=== PATIENT | female | born 1985 | race Caucasian/White ===

== ENCOUNTER 2016-11-19 18:04 | Emergency (ER) | payer OTHER ==
[~2016-11-19] VITALS: Ht 162.6 cm; Wt 104.8 kg
[2016-11-19 18:10] VITALS: BP 121/71
[2016-11-19 18:26] LABS: ADD MIUA? NO; BILIRUBIN NEGATIVE; BLOOD NEGATIVE; COLOR YELLOW ((YELLOW)); GLUCOSE (STRIP) NEGATIVE; KETONES NEGATIVE; LEUKOCYTES NEGATIVE; NITRITE NEGATIVE; PROTEIN (STRIP) NEGATIVE; UCUL ADDED? NO; UROBILINOGEN 0.2 MG/DL (0.2-1.0)
[2016-11-19 18:57] LABS: HEMATOCRIT 34.9 % (36.0-46.0); MCHC 30.4 G/DL (30.0-36.0); MCV 79.1 FL (83-99); MEAN PLAT.VOLUME 11.7 uM^3 (9.5-12.4); PLATELET COUNT 280 K/uL (156-360); RBC DIS.WIDTH-SD 42.8 % (39-53); RED BLOOD COUNT 4.41 M/uL (3.80-5.20); WHITE BLOOD COUNT 10.3 K/uL (4.1-10.2)
[2016-11-19 19:08] LABS: CHLORIDE 108 mEq/L (99-109); POTASSIUM 4.3 mEq/L (3.7-5.4); SODIUM 140 mEq/L (136-147)
[2016-11-19 19:10] LABS: GLUCOSE 88 mg/dL (70-99)
[2016-11-19 19:11] LABS: ANION GAP 13 MEQ/L (2-14)
[2016-11-19 19:12] LABS: TOTAL BILIRUBIN 0.2 mg/dL (0.0-1.0)
[2016-11-19 19:13] LABS: ALKALINE PHOSPHATASE 103 IU/L (3-129)
[2016-11-19 19:14] LABS: GFR ESTIMATE (CALCULATED) > 59 mL/min/
[2016-11-19 19:15] LABS: UREA NITROGEN (BUN) 16 mg/dL (9-23)
[2016-11-19 19:17] LABS: LIPASE 27 U/L (1.0-51.0)
[2016-11-19 19:23] LABS: QUANTITATIVE HCG < 4.0 MIU/ML
== END 2016-11-19 20:06 | disposition home or self-care (01) ==
LOC: EME 18:04
DX: R10.13 Epigastric pain (principal); D64.9 Anemia, unspecified
CPT/HCPCS: 80053; 81003; 83690; 84702; 85027; 99281; 99284

== ENCOUNTER 2017-02-23 21:50 | Emergency (ER) | payer OTHER ==
[~2017-02-23] VITALS: Ht 162.6 cm; Wt 105.4 kg
[2017-02-23 22:22] LABS: APPEARANCE SL.HAZY ((CLEAR)); BILIRUBIN NEGATIVE; BLOOD SMALL; COLOR YELLOW ((YELLOW)); GLUCOSE (STRIP) NEGATIVE; KETONES NEGATIVE; LEUKOCYTES NEGATIVE; NITRITE NEGATIVE; PROTEIN (STRIP) NEGATIVE; SPECIFIC GRAVITY 1.024 (1.000-1.030)
[2017-02-23 22:32] LABS: MCH 24.4 PG (29.0-34.0); MCHC 30.3 G/DL (30.0-36.0); MCV 80.5 FL (83-99); PLATELET COUNT 361 K/uL (156-360); RBC DIS.WIDTH-CV 14.7 % (11.8-14.6); RBC DIS.WIDTH-SD 43.3 % (39-53); WHITE BLOOD COUNT 10.6 K/uL (4.1-10.2)
[2017-02-23 22:37] LABS: BACTERIA RARE /HPF; EPITHELIAL CELLS 1+ /HPF; MUCUS TRACE /LPF; RED BLOOD CELLS 0-5 /HPF (0-5); UCUL ADDED? NO; WHITE BLOOD CELLS 0-5 /HPF (0-5)
[2017-02-23 22:39] LABS: ALBUMIN 4.2 g/dL (3.2-4.8); CHLORIDE 108 mEq/L (99-109); POTASSIUM 4.3 mEq/L (3.7-5.4); SODIUM 141 mEq/L (136-147)
[2017-02-23 22:42] LABS: GLUCOSE 100 mg/dL (70-99)
[2017-02-23 22:44] LABS: TOTAL BILIRUBIN 0.1 mg/dL (0.0-1.0)
[2017-02-23 22:45] LABS: ALKALINE PHOSPHATASE 108 IU/L (3-129); CREATININE 0.8 mg/dL (0.6-1.3); GFR ESTIMATE (CALCULATED) > 59 mL/min/
[2017-02-23 22:46] LABS: UREA NITROGEN (BUN) 14 mg/dL (9-23)
[2017-02-23 22:47] LABS: AST (GOT) 13 IU/L (2-34)
[2017-02-23 22:48] LABS: ALT (GPT) 12 IU/L (3-49)
[2017-02-23 22:55] LABS: QUANTITATIVE HCG 26.2 MIU/ML
[2017-02-24 00:24] VITALS: BP 139/78
== END 2017-02-24 00:25 | disposition home or self-care (01) ==
LOC: RME 21:50 → EME 21:50 → RME 02-24 00:25
DX: O20.9 Hemorrhage in early pregnancy, unspecified (principal); O99.011 Anemia complicating pregnancy, first trimester; Z3A.00 Weeks of gestation of pregnancy not specified
CPT/HCPCS: 80053; 81003; 84702; 85027; 99281; 99284

== ENCOUNTER 2017-02-25 19:49 | Emergency (ER) | payer OTHER ==
[~2017-02-25] VITALS: Ht 162.6 cm; Wt 105.1 kg
[2017-02-25 23:41] VITALS: BP 95/59
== END 2017-02-25 23:45 | disposition home or self-care (01) ==
LOC: EME 19:49
DX: O03.9 Complete or unspecified spontaneous abortion without complication (principal); N83.11 Corpus luteum cyst of right ovary; M54.5 Low back pain
CPT/HCPCS: 76817; 84702; 99281; 99284

== ENCOUNTER 2017-06-11 19:02 | Emergency (ER) | payer OTHER ==
[~2017-06-11] VITALS: Ht 162.6 cm; Wt 108.0 kg
[2017-06-11 19:38] LABS: HEMATOCRIT 31.9 % (36.0-46.0); HEMOGLOBIN 9.9 G/DL (11.9-15.5); MCH 24.8 PG (29.0-34.0); MCV 79.8 FL (83-99); PLATELET COUNT 344 K/uL (156-360); RBC DIS.WIDTH-CV 15.4 % (11.8-14.6); RBC DIS.WIDTH-SD 44.2 % (39-53); WHITE BLOOD COUNT 9.6 K/uL (4.1-10.2)
[2017-06-11 19:47] LABS: ALBUMIN 4.2 g/dL (3.2-4.8); CHLORIDE 110 mEq/L (99-109); POTASSIUM 3.6 mEq/L (3.7-5.4); SODIUM 139 mEq/L (136-147)
[2017-06-11 19:48] LABS: APPEARANCE CLEAR ((CLEAR)); BILIRUBIN NEGATIVE; BLOOD NEGATIVE; COLOR YELLOW ((YELLOW)); GLUCOSE (STRIP) NEGATIVE; KETONES 5; LEUKOCYTES NEGATIVE; NITRITE NEGATIVE; PROTEIN (STRIP) NEGATIVE; SPECIFIC GRAVITY 1.034 (1.000-1.030)
[2017-06-11 19:50] LABS: GLUCOSE 100 mg/dL (70-99)
[2017-06-11 19:52] LABS: TOTAL BILIRUBIN 0.2 mg/dL (0.0-1.0)
[2017-06-11 19:53] LABS: ALKALINE PHOSPHATASE 84 IU/L (3-129)
[2017-06-11 19:54] LABS: CREATININE 0.8 mg/dL (0.6-1.3); GFR ESTIMATE (CALCULATED) > 59 mL/min/
[2017-06-11 19:55] LABS: AST (GOT) 11 IU/L (2-34); DIRECT BILIRUBIN 0.1 mg/dL (0.0-0.3); UREA NITROGEN (BUN) 11 mg/dL (9-23)
[2017-06-11 19:56] LABS: ALT (GPT) 10 IU/L (3-49)
[2017-06-11 19:57] LABS: LIPASE 28 U/L (1.0-51.0)
[2017-06-11 20:05] LABS: QUANTITATIVE HCG 1751.8 MIU/ML
[2017-06-11 22:55] VITALS: BP 125/73
== END 2017-06-11 22:55 | disposition home or self-care (01) ==
LOC: EME 19:02
PROVIDERS: Physician Assistant
DX: O99.89 Other specified diseases and conditions complicating pregnancy, childbirth and the puerperium (principal); M54.5 Low back pain; O99.281 Endocrine, nutritional and metabolic diseases complicating pregnancy, first trimester; E86.0 Dehydration; O20.0 Threatened abortion; Z3A.01 Less than 8 weeks gestation of pregnancy; R30.0 Dysuria
CPT/HCPCS: 76801; 80048; 80076; 81003; 83690; 84702; 85027; 86900; 86901; 99281; 99284

== ENCOUNTER 2017-06-20 21:28 | Emergency (ER) | payer OTHER ==
[~2017-06-20] VITALS: Ht 162.6 cm; Wt 108.7 kg
[2017-06-20 22:39] LABS: APPEARANCE CLEAR ((CLEAR)); BILIRUBIN NEGATIVE; BLOOD NEGATIVE; COLOR YELLOW ((YELLOW)); GLUCOSE (STRIP) NEGATIVE; KETONES NEGATIVE; LEUKOCYTES NEGATIVE; NITRITE NEGATIVE; PROTEIN (STRIP) NEGATIVE; SPECIFIC GRAVITY 1.023 (1.000-1.030); UCUL ADDED? NO; UROBILINOGEN 0.2 MG/DL (0.2-1.0)
[2017-06-21 00:05] VITALS: BP 126/64
== END 2017-06-21 00:06 | disposition home or self-care (01) ==
LOC: EME 21:28
PROVIDERS: Physician Assistant
DX: O9A.211 Injury, poisoning and certain other consequences of external causes complicating pregnancy, first trimester (principal); S30.0XXA Contusion of lower back and pelvis, initial encounter; R10.2 Pelvic and perineal pain; Z3A.01 Less than 8 weeks gestation of pregnancy; W10.9XXA Fall (on) (from) unspecified stairs and steps, initial encounter
CPT/HCPCS: 76801; 81003; 99281; 99284

== ENCOUNTER 2017-08-31 14:10 | Emergency (ER) | payer OTHER ==
[~2017-08-31] VITALS: Ht 162.6 cm; Wt 112.7 kg
[2017-08-31 15:06] LABS: APPEARANCE CLEAR ((CLEAR)); BILIRUBIN NEGATIVE; BLOOD NEGATIVE; COLOR STRAW ((YELLOW)); GLUCOSE (STRIP) NEGATIVE; KETONES NEGATIVE; LEUKOCYTES NEGATIVE; NITRITE NEGATIVE; PROTEIN (STRIP) NEGATIVE; SPECIFIC GRAVITY 1.012 (1.000-1.030); UROBILINOGEN 0.2 MG/DL (0.2-1.0)
[2017-08-31 15:11] LABS: BASOPHIL (%) 0.2 % (0-1); EOSINOPHIL (%) 0.8 % (0-5); EOSINOPHIL COUNT 0.1 K/uL (0-0.3); HEMATOCRIT 28.8 % (36.0-46.0); IMMATURE GRANULOCYTE (%) 0.3 % (0.0-0.7); LYMPHOCYTE (%) 17.7 % (15-42); LYMPHOCYTE COUNT 1.6 K/uL (1.0-2.8); MCH 24.2 PG (29.0-34.0); MCHC 31.3 G/DL (30.0-36.0); MCV 77.4 FL (83-99); MONOCYTE (%) 4.3 % (3-12); MONOCYTE COUNT 0.4 K/uL (0-0.8); NEUTROPHIL (%) 76.7 % (45-76); PLATELET COUNT 232 K/uL (156-360); RBC DIS.WIDTH-CV 15.2 % (11.8-14.6); RED BLOOD COUNT 3.72 M/uL (3.80-5.20); WHITE BLOOD COUNT 9.1 K/uL (4.1-10.2)
[2017-08-31 15:19] LABS: CHLORIDE 107 mEq/L (99-109); POTASSIUM 3.6 mEq/L (3.7-5.4); SODIUM 137 mEq/L (136-147)
[2017-08-31 15:21] LABS: GLUCOSE 102 mg/dL (70-99)
[2017-08-31 15:25] LABS: CREATININE 0.6 mg/dL (0.6-1.3); GFR ESTIMATE (CALCULATED) > 59 mL/min/; UREA NITROGEN (BUN) 9 mg/dL (9-23)
[2017-08-31 16:35] VITALS: BP 141/63
== END 2017-08-31 16:36 | disposition home or self-care (01) ==
LOC: EME 14:10
PROVIDERS: Physician Assistant
DX: O20.0 Threatened abortion (principal); Z3A.16 16 weeks gestation of pregnancy
CPT/HCPCS: 80048; 81003; 84702; 85025; 99281; 99284